=== PATIENT | female | born 1960 | race Caucasian/White ===

== ENCOUNTER → 2017-03-03 | Outpatient (CLI) | payer BC ==
[2017-03-03 18:28] LABS: ALT/SGPT 76 U/L (12-78); BLOOD UREA NITROGEN 25 mg/dl (7-18); BUN/CREATININE RATIO 40.5 (10-20); CARBON DIOXIDE 26 mmol/L (21-32); CHLORIDE 104 mmol/L (98-107); CREATININE 0.61 mg/dl (0.60-1.20); GLUCOSE 96 mg/dl (70-99); POTASSIUM 3.9 mmol/L (3.5-5.1); SODIUM 139 mmol/L (136-145)
[2017-03-03 18:30] LABS: CHOLESTEROL 132 mg/dl (0-200); CHOLESTEROL/HDL RATIO 3.1; HDL CHOLESTEROL 42 mg/dl; TRIGLYCERIDES 220 mg/dl (0-150); VERY LOW DENSITY LIPOPROT CALC 44 mg/dl
== END | disposition home or self-care (01) ==
LOC: C.LABMFLN 16:22
PROVIDERS: ATTEND Family Medicine
DX: I10 Essential (primary) hypertension (principal); F41.8 Other specified anxiety disorders; E78.00 Pure hypercholesterolemia, unspecified

== ENCOUNTER 2019-07-06 09:14 | Observation (INO) ==
--- NOTE | 2019-06-05 09:38 | PAT Medication Instructions ---
Medication Instructions Date of Service June 05, 2019 Home Medications Medication Instructions Recorded calcium carbonate 600 mg calcium 600 mg PO DAILY #90 tab 11/09/18 (1,500 mg) tablet gabapentin 300 mg capsule 300 mg PO TID #270 cap 03/08/19 amlodipine 5 mg tablet 5 mg PO DAILY #90 tab 05/30/19 calcium carbonate 600 mg calcium (1,500 mg) tablet 600 mg PO DAILY gabapentin 300 mg capsule 300 mg PO TID benazepril 20 mg PO QAM hydrocodone-acetaminophen 1 tab PO BID meloxicam 15 mg PO QAM sertraline 75 mg PO QAM amlodipine 5 mg tablet 5 mg PO DAILY ASK your surgeon for instructions meloxicam 15 mg PO QAM DO NOT take the morning of surgery calcium carbonate 600 mg calcium (1,500 mg) tablet 600 mg PO DAILY benazepril 20 mg PO QAM Take morning of surgery With a small sip of water, OTHERWISE NOTHING TO EAT OR DRINK AFTER MIDNIGHT: gabapentin 300 mg capsule 300 mg PO TID hydrocodone-acetaminophen 1 tab PO BID (if needed, may be taken up to four hours before surgery) sertraline 75 mg PO QAM amlodipine 5 mg tablet 5 mg PO DAILY Take evening before surgery gabapentin 300 mg capsule 300 mg PO TID hydrocodone-acetaminophen 1 tab PO BID Other Notes If you have any questions please call us at [phone] or [phone] or [phone] or [phone]
--- NOTE | 2019-06-05 10:56 | Anesthesiology Consultation ---
Date of Service June 05, 2019 Assessment & Plan (1) Encounter for pre-operative examination: Chart Review Chart Review: Acceptable Risk for Surgery (pending pre op testing) and Patient seen in Pre Admission Testing Teaching & Discussion Instructed NPO after midnight before surgery, except medications with 15 cc of water. Medication instructions provided according to the PAT guidelines. History Surgery Operation Date: 07/06/19 10:40 Proposed Procedures p Left Total Shoulder Arthroplasty - Maxim Hernández, Height/Weight Height: 5 ft 6 in Weight: 70.2 kg Allergies Allergy/AdvReac Type Severity Reaction Status Date / Time No Known Allergies Allergy Verified 05/29/19 08:31 Medications Home Medications Medication Instructions Recorded Confirmed Last Taken calcium carbonate 600 mg calcium 600 mg PO DAILY #90 tab 11/09/18 06/05/19 Unknown (1,500 mg) tablet gabapentin 300 mg capsule 300 mg PO TID #270 cap 03/08/19 06/05/19 Unknown benazepril 20 mg PO QAM 05/29/19 06/05/19 05/29/19 hydrocodone-acetaminophen 1 tab PO BID 05/29/19 06/05/19 Unknown meloxicam 15 mg PO QAM 05/29/19 06/05/19 05/29/19 sertraline 75 mg PO QAM 05/29/19 06/05/19 05/29/19 amlodipine 5 mg tablet 5 mg PO DAILY #90 tab 05/30/19 06/05/19 Unknown Past Medical History Medical History Benign essential hypertension (Chronic) Cervical radiculopathy (Chronic) HX PINCHED NERVE, HX EPIDURAL PROCEDURE PAIN MGMT FEW MONTHS AGO Depression with anxiety (Chronic) DJD (degenerative joint disease), lumbosacral (Chronic) Normal colonoscopy Opiate dependence (Suspected) Osteoarthritis Exercise / Class Metabolic Activity II 4-5 Yardwork/Stairs/Walk up hill (DENIES CP OR SOB WITH 1 FOS) Past Surgical History Surgical History History of colonoscopy History of ovarian cystectomy Past Anesthesia History No Hx of Anesthesia Complications and No Family Hx of Anesthesia Complications History of PONV No Hx of PONV and No Hx of Motion Sickness Social History Smoking Status: Former smoker tobacco type: cigarettes Smoking cigarettes per day: 30 Do You Dip or Chew Tobacco: No Smoking End Date: 1993 Hx Alcohol Use: No Hx Substance Use: No Review of Systems Pt denies any recent chest pain, shortness of breath, palpitations, cough, fever or URI. Physical Exam Vital Signs BP: 114/65 P: 53bpm SPO2: 98% RA T: 98.0 F R: 12 ENMT Mouth: + dentures and + edentulous Thyromental Distance: > or= 3.5 Finger Breadths (4) Mallampati Class: I Neck normal visual inspection; neck extension not limited Respiratory normal respiratory effort Auscultation: lungs clear to auscultation bilaterally Cardiovascular Rate/Rhythm: regular rhythm and + bradycardic Heart Sounds: no murmur Extremities: no edema Testing Electrocardiogram Date: 10/18/18 Findings: + SB @ (55) Moderate voltage criteria for LVH, may be normal.
--- NOTE | 2019-06-05 11:20 | XRay Report ---
XR chest Pre-admission PA/Lat HISTORY: 58 years-old Female pat preoperative exam. No acute chest complaints COMPARISON: None available TECHNIQUE: PA and lateral views of the chest FINDINGS: Cardiac mediastinal and hilar silhouettes are within normal limits. There is no pneumothorax, pleural effusion, focal airspace consolidation or overt pulmonary edema. Degenerative changes of the shoulde rs and spine. Minimal convex right curvature of the mid thorax. IMPRESSION: No acute process. ACT 112: Negative or not required by law. The above report was generated using voice recognition software. It may contain grammatical, syntax o r spelling errors. Electronically signed by: Drew Brown M.D. 06/05/2019 11:18 AM
[2019-06-05 11:52] LABS: Basophils # (auto) 0.02 K/uL (0-0.2); Basophils % (auto) 0.3 %; Eosinophils # (auto) 0.27 K/uL (0-0.5); Eosinophils % (auto) 3.7 %; Hematocrit (blood only) 40.3 % (37-47); Hemoglobin 13.7 g/dL (12.0-16.0); Immature Granulocytes # (auto) 0.03 K/uL (0.00-0.02); Immature Granulocytes % (auto) 0.4 %; Lymphocytes # (auto) 2.27 K/uL (1.2-3.4); Lymphocytes % (auto) 30.8 %; Mean Corpuscular Hemoglobin 30.1 pg (25-34); Mean Corpuscular Volume 88.6 fL (80-100); Mean Platelet Volume 9.8 fL (7.4-10.4); Monocytes # (auto) 0.34 K/uL (0.11-0.59); Monocytes % (auto) 4.6 %; Neutrophils # (auto) 4.44 K/uL (1.4-6.5); Neutrophils % (auto) 60.2 %; Platelet Count 224 K/uL (130-400); RDW Coefficient of Variation 12.5 % (11.5-14.5); RDW Standard Deviation 39.8 fL (36.4-46.3); Red Blood Count 4.55 M/uL (4.2-5.4); White Blood Count 7.37 K/uL (4.8-10.8)
[2019-06-05 11:58] LABS: BUN Creatinine Ratio 27.4 (10-20); Calcium 9.7 mg/dl (8.5-10.1); Creatinine Clr Calc Pharmacy 83.4 ml/min; Est GFR (Non-African American) 95.7; Potassium 4.7 mmol/L (3.5-5.1)
[2019-06-05 12:06] LABS: Partial Thromboplastin Ratio 0.9; Partial Thromboplastin Time 24.7 Seconds (21.0-31.0); Prothrombin Time 10.3 Seconds (9.0-12.0)
--- NOTE | 2019-07-05 15:56 | History & Physical Report ---
Date of Service July 05, 2019 Assessment & Plan (1) Osteoarthritis of glenohumeral joint: We will proceed with a left total shoulder arthroplasty. Postoperatively she will be placed in a sling and kept overnight in the hospital for postoperative medical management. She plans to go to outpatient physical therapy in [place] upon discharge. Present on Admission?: Yes History of Present Illness Chief Complaint: Primary osteoarthritis of the left shoulder Primary Care Provider: Braydon Gamino MD Nida is a pleasant 59-year-old female who is been dealing with chronic increasing left shoulder pain. MRI and clinical examination have been diagnostic for advanced osteoarthritis of the left shoulder. After failing conservative treatment, she has elected to proceed with a left total shoulder arthroplasty. Allergies Allergy/AdvReac Type Severity Reaction Status Date / Time No Known Allergies Allergy Verified 05/29/19 08:31 Home Medications Home Medications Medication Instructions Recorded Confirmed Type calcium carbonate 600 mg calcium 600 mg PO DAILY #90 tab 11/09/18 06/05/19 Rx (1,500 mg) tablet gabapentin 300 mg capsule 300 mg PO TID #270 cap 03/08/19 06/05/19 Rx benazepril 20 mg PO QAM 05/29/19 06/05/19 History meloxicam 15 mg PO QAM 05/29/19 06/05/19 History sertraline 75 mg PO QAM 05/29/19 06/05/19 History amlodipine 5 mg tablet 5 mg PO DAILY #90 tab 05/30/19 06/05/19 Rx hydrocodone 7.5 mg-acetaminophen 1 tab PO BID #60 tab 06/06/19 Rx 325 mg tablet Past Med/Surg History Medical History Benign essential hypertension (Chronic) Cervical radiculopathy (Chronic) HX PINCHED NERVE, HX EPIDURAL PROCEDURE PAIN MGMT FEW MONTHS AGO Depression with anxiety (Chronic) DJD (degenerative joint disease), lumbosacral (Chronic) Normal colonoscopy Opiate dependence (Suspected) Osteoarthritis Surgical History History of colonoscopy History of ovarian cystectomy Family History Mother Diabetes Hypertension Father Diabetes Sister Diabetes Brother Diabetes Grandmother (Maternal) Diabetes Social History Preferred Language: Niuean Communication Ability: Effective Beliefs That Will Affect Care: None Current Living Situation: Parent current occupational status: employed current occupation: [employer] maker [employer] Feels Safe at Home: Yes Smoking Status: Former smoker Tobacco Type: cigarettes ; Age Started Using Tobacco: 14 ; Age Quit Using Tobacco: 29 ; packs per day: 1.5 ; Cigarettes Per Day: 30 ; Do You Dip or Chew Tobacco: No ; Smoking End Date: 1993 ; Number of Years Since Quit: 30 ; Second Hand Exposure: No ; Hx Alcohol Use: No Hx Substance Use: No Review of Systems All systems reviewed & are unremarkable except as noted in HPI & below Physical Exam Constitutional: WD/WN, vitals as above Eyes: PERRL, conjunctivae normal, anicteric sclerae ENMT: external ear and nose normal, oropharynx normal Neck: trachea midline, no thyromegaly Respiratory: normal respiratory effort Cardiovascular: RRR, no murmur, no edema Gastrointestinal (Abdomen): normal bowel sounds, soft, nontender, no hepatosplenomegaly Musculoskeletal: Physical examination of the left shoulder reveals decreased range of motion and crepitis throughout. There is good strength with full can testing and external rotation. There is tenderness palpation along the anterior glenohumeral joint line. The right upper extremity is neurovascularly intact. Psychiatric: A+Ox3, euthymic affect Results & Data Diagnostic Findings Radiographs of the left shoulder show osteoarthritis of the glenohumeral joint. There is joint space narrowing, osteophyte formation, and [id number] articulation.
[~2019-07-06 09:14] MED LIST: ACETAMINOPHEN 500 MG TAB PO SCH; BUPIVACAINE 0.5 % 5 MG/1 ML PF 10ML VIAL ONE; CEFAZOLIN 1000MG 1,000 MG/7.5 ML SYR IV SCH; FAMOTIDINE 20 MG TAB PO SCH; GABAPENTIN 600 MG DOSE PO SCH; LIDOCAINE HCL 2% 2 ML VIAL/AMP(20MG/ML) INFIL ONE; LR 15ML/HR IV SCH; LR 60ML/HR IV SCH; MIDAZOLAM HCL 1 MG/ML 2ML VIAL ONE; PROPOFOL IV EMULSION 10 MG/ML 20 ML VIAL IV ONE; ROPIVACAINE 0.5% HCL/PF 150 MG, BUPIVACAINE 0.5% MPF 30 ML, EPINEPHrine 30MG/30ML (OR U... INFIL SCH; TRANEXAMIC ACID 1,000 MG **IV Intra-op IV SCH; TRANEXAMIC ACID 1,000 MG **IV Pre-op IV SCH; dexAMETHasone 4 MG TAB PO SCH; fentaNYL citrate 100 MCG/2 ML VIAL ONE
--- NOTE | 2019-07-06 09:48 | History & Physical Bridge Note ---
Date of Service July 06, 2019 History & Physical Bridge Note I have examined the patient, reviewed the History & Physical and in the interval since the performance of the History & Physical I have noted the following changes of clinical significance: no changes noted
[2019-07-06] MEDS ORDERED: ONDANSETRON INJ 2 MG/ML 2 ML VIAL IV PRN ×2 (10:21→13:57)
[2019-07-06] MEDS ORDERED: ePHEDrine sulfate 50 MG/ML AMP IV PRN (10:21)
[2019-07-06] MEDS ORDERED: ATROPINE SULFATE 0.1 MG/ML 10ML SYR IV PRN (10:21)
[2019-07-06] MEDS ORDERED: fentaNYL citrate 100 MCG/2 ML VIAL IV PRN (10:21)
[2019-07-06] MEDS ORDERED: ORTHO JOINT ANESTHETIC ONE (10:34)
[2019-07-06] MEDS ORDERED: fentaNYL citrate 100 MCG/2 ML VIAL ONE (11:31)
[2019-07-06] MEDS ORDERED: ePHEDrine sulfate 50 MG/ML SYR ONE (11:48)
[2019-07-06] MEDS ORDERED: DEXAMETHASONE SOD INJ 4 MG/ML VIAL ONE (11:48)
[2019-07-06] MEDS ORDERED: GLYCOPYRROLATE 0.2 MG/ML VIAL ONE (11:48)
[2019-07-06] MEDS ORDERED: ONDANSETRON INJ 2 MG/ML 2 ML VIAL ONE (11:48)
[2019-07-06] MEDS ORDERED: ROCURONIUM BROMIDE 10 MG/ML 5 ML VIAL ONE (11:48)
--- NOTE | 2019-07-06 12:22 | Operative Report ---
PG Post Operative Report Pre & Post Diagnosis Operation Date: 07/06/19 11:50 Pre-Op Diagnosis: LEFT SHOULDER DEGENERATIVE JOINT DISEASE with long head of biceps tendon disease Post-Op Diagnosis: LEFT SHOULDER DEGENERATIVE JOINT DISEASE with long head of biceps tendon disease I identified the patient and participated in the time-out.: Yes Procedure Operation Date: 07/06/19 11:50 Actual Procedures p Left Total Shoulder Arthroplasty with biceps tenodesis as a separate procedure (29 modifier )(Left) - Maxim Hernández DO Surgeon Maxim Hernández DO Independent Living Advisor Maxim Tariq PAC Estimated Blood Loss 200 Findings Consistent with Post-Op Diagnosis Specimens Left humeral head Complications none Disposition Disposition: Recovery Room Indications Nida is a pleasant 59-year-old female who presented my office with chronic increasing left shoulder pain. X-rays and clinical examination were diagnostic for primary osteoarthritis of the left shoulder. After failing conservative treatment, she elected proceed with a left total shoulder arthroplasty. Description of Procedure A CPT code modifier 59: The long head of the biceps tendon was enlarged and inflamed consistent with tendinopathy. A tenodesis was opted. This was a separate and distinct portion of the procedure. For these reasons, a CPT code modifier 59 will be added to this case. Implants used: I used a Biomet Comprehensive total shoulder arthroplasty system with a size 10 press fit mini humeral stem, a size 46 x 18 eccentric humeral head, and a medium size glenoid with a Regenerex peg. The glenoid was cemented in place with Palacos G cement. Nida arrived at [facility] for the above procedure. She was seen in the preoperative holding area and the operative extremity was identified and signed. She was given a preoperative antibiotic, TXA, and an interscalene nerve block. She was taken back to the operating room, laid on table in supine position, and put under general anesthesia. She was then put into the beachchair position. The shoulder was then prepped and draped in sterile fashion. A timeout was done and the patient and the operative extremity was properly identified. A deltopectoral approach was used. Dissection was taken down through the fascia and the deltoid was retracted laterally and the conjoined tendon was retracted medially. The anterior shoulder was exposed. The biceps groove was opened up and the biceps tendon was examined extensively. The biceps tendon demonstrated enlargement and inflammatory changes consistent with longstanding inflammation i n the context of osteoarthritis. The long head of the biceps tendon was then tenodesed to the upper border of the pectoralis major. This was a separate and distinct portion of the procedure. The subscapularis was then released off the lesser tuberosity with a centimeter of cuff tissue remaining. The inferior capsule was released and the humeral head was dislocated. The rotator cuff was inspected and intact. A canal finding reamer was sent down the center of the humeral canal. Sequential reaming up to a size 10 reamer was done. Offset reamer a proximal humeral resection guide was placed. The proximal humerus was resected at 135 of inclination and 30 of retroversion. Inferior osteophytes were then removed and the glenoid was exposed. Time was spent doing an appropriate labral rel ease. The glenoid measured to be a size medium. A 3.2 mm Steinmann pin was placed in the central hole of the glenoid vault pin guide. The glenoid was then reamed with a propeller reamer. The central post cutter was then used to prepare for the central boss. The cannulated peripheral peg drill guide was then placed and 3 peg holes were drilled. The final size medium glenoid was then cemented in place with Palacos G cement. Surrounding soft tissues were then injected with 100 cc of an orthopedic pain control cocktail. Once cement had dried the proximal humerus was once again exposed. Sequential broaching of the humerus up to a size 10 broach was done. Off that broach a size 46 x 18 eccentric humeral head was trialed. The shoulder was then reduced, brought through a full range of motion, and felt to be stable. The shoulder was then dislocated and the broach was removed. The final size 10 mini humeral stem implant was then impacted into place. A size 46 x 18 eccentric humeral head was then impacted onto the humeral stem. The shoulder was then reduced and once again brought through a full range of motion and felt to be stable. The subscapularis was then tenodesed back to the lesser tuberosity with transosseous FiberWire sutures and side to side sutures with the arm in 45 of external rotation. 2 sutures were placed in the lateral rotator interval. A dilute betadyne lavage was then done for 3 minutes. The joint was then irrigated with normal saline solution. Hemostasis was obtained. The interval was closed with 2-0 Vicryl suture. The skin was closed with 2-0 Vicryl and ashley. A soft dressing was placed and the arm was rested in a regular arm sling. She was then extubated and transferred to a hospital bed. She was taken to the postanesthesia care unit in stable condition. She tolerated the procedure well. I attest to the content of the Intraoperative Record and any orders documented therein. Any exceptions are noted below.
--- NOTE | 2019-07-06 13:06 | Anesthesiology Progress Note ---
Date of Service July 06, 2019 Anesthesia Post Procedure Vital Signs Vital Signs: Temp Pulse Pulse Resp BP Pulse Ox 07/06/19 12:55 58 L 10 L 166/82 H 100 07/06/19 12:45 36.0 C L 56 L 10 L 153/75 H 100 07/06/19 09:34 36.4 C L 53 L 18 183/85 H 97 Pain Intensity Left Shoulder: Pain Intensity: 3 Transfer of Care Handoff Completed per policy Notes Mental Status: alert / awake / arousable Patient Amnestic to Procedure: Yes Nausea / Vomiting: adequately controlled Pain: adequately controlled Airway Patency, RR, SpO2: stable & adequate BP & HR: stable & adequate Hydration State: stable & adequate Anesthetic Complications: no major complications apparent Notes: block working well in pacu
--- NOTE | 2019-07-06 13:15 | XRay Report ---
XR shoulder LT min 2V routine HISTORY: 59 years-old Female Post shoulder surgery left shoulder total joint arthroplasty COMPARISON: Chest radiograph 06/05/2019 TECHNIQUE: 2 views of the left shoulder FINDINGS: Left shoulder total joint arthroplasty demonstrates satisfactory alignment without acute fracture all retained foreign body. Lateral skin ashley are noted along with expected postsurgical soft tissue s welling and deep tissue air. IMPRESSION: Left shoulder total joint arthroplasty with expected postoperative findings. ACT 112: Negative or not required by law. The above report was generated using voice recognition software. It may contain grammatical, syntax o r spelling errors. Electronically signed by: Drew Brown M.D. 07/06/2019 1:13 PM
[2019-07-06] MEDS ORDERED: METOCLOPRAMIDE HCL INJ 5 MG/ML 2 ML VIAL IV PRN (13:57)
[2019-07-06] MEDS ORDERED: NALOXONE HCL 0.4 MG/1 ML VIAL/CARP IV PRN (13:57)
[2019-07-06] MEDS ORDERED: HYDROmorphone INJ 0.5 MG/0.5 ML SYR IV PRN (13:57)
[2019-07-06] MEDS ORDERED: bisacodyL 10 MG SUPP PR PRN (13:57)
[2019-07-06] MEDS ORDERED: MAGNESIUM HYDROXIDE SUSP 30 ML UDC PO PRN (13:57)
[2019-07-06] MEDS: SODIUM CHLORIDE 0.9% 1000ML 1,000 ML IV SCH (14:33)
[2019-07-06] MEDS: ACETAMINOPHEN 500 MG TAB PO SCH ×2 (14:47→20:36)
[2019-07-06] MEDS: KETOROLAC 30 MG/ML VIAL IV SCH ×2 (14:47→20:36)
[2019-07-06] MEDS: GABAPENTIN 300 MG CAP PO SCH ×2 (17:45→20:36)
[2019-07-06] MEDS: OXYCODONE HCL IR 5 MG TAB (IMMEDIATE RELEASE) PO PRN ×2 (17:47→23:52)
[2019-07-06] MEDS: CEFAZOLIN 2000MG 2,000 MG/15 ML SYR IV SCH (19:54)
[2019-07-06] MEDS: DOCUSATE SODIUM 100 MG CAP PO SCH (20:35)
[2019-07-06] MEDS ORDERED: SENNA 8.6 MG TAB PO SCH (21:00)
[2019-07-07] MEDS: SODIUM CHLORIDE 0.9% 1000ML 1,000 ML IV SCH (00:55)
[2019-07-07] MEDS: CEFAZOLIN 2000MG 2,000 MG/15 ML SYR IV SCH (04:27)
[2019-07-07] MEDS: KETOROLAC 30 MG/ML VIAL IV SCH ×2 (04:28→08:51)
[2019-07-07] MEDS: OXYCODONE HCL IR 5 MG TAB (IMMEDIATE RELEASE) PO PRN ×2 (04:35→09:03)
[2019-07-07] MEDS: ACETAMINOPHEN 500 MG TAB PO SCH (05:46)
[2019-07-07 05:55] LABS: Hemoglobin 11.4 g/dL (12.0-16.0); Immature Granulocytes # (auto) 0.03 K/uL (0.00-0.02); Immature Granulocytes % (auto) 0.2 %; Lymphocytes # (auto) 0.83 K/uL (1.2-3.4); Lymphocytes % (auto) 4.9 %; Mean Corpuscular Hemoglobin 29.8 pg (25-34); Mean Corpuscular Hgb Conc 34.5 g/dL (32-36); Mean Corpuscular Volume 86.2 fL (80-100); Mean Platelet Volume 9.8 fL (7.4-10.4); Monocytes # (auto) 0.34 K/uL (0.11-0.59); Neutrophils # (auto) 15.91 K/uL (1.4-6.5); Neutrophils % (auto) 92.9 %; Platelet Count 189 K/uL (130-400); RDW Coefficient of Variation 12.1 % (11.5-14.5); Red Blood Count 3.83 M/uL (4.2-5.4); White Blood Count 17.11 K/uL (4.8-10.8)
[2019-07-07 06:23] LABS: BUN Creatinine Ratio 31.1 (10-20); Calcium 9.1 mg/dl (8.5-10.1); Creatinine Clr Calc Pharmacy 67.7 ml/min; Est GFR (African American) 86.3; Est GFR (Non-African American) 74.5; Potassium 4.2 mmol/L (3.5-5.1)
[2019-07-07] MEDS ORDERED: dexAMETHasone 4 MG TAB PO SCH (08:00)
[2019-07-07] MEDS: DOCUSATE SODIUM 100 MG CAP PO SCH (08:48)
[2019-07-07] MEDS: GABAPENTIN 300 MG CAP PO SCH (08:49)
--- NOTE | 2019-07-07 08:51 | Orthopedic Progress Note ---
Date of Service July 07, 2019 Assessment & Plan (1) History of left shoulder replacement: Overall she is doing very well. She is not having much pain in the left shoulder. She will be seen by physical therapy this morning for ambulation and range of motion exercises. She can be discharged home later today. She will follow-up with orthopedics in 2 weeks. Present on Admission?: Yes Subjective Nida was seen and examined at bedside this morning. Overall she is doing very well. She is not having any pain in the left shoulder. She was able to get some sleep last night. She has no complaints. Physical Exam Musculoskeletal: On physical examination of the left shoulder, the dressing is clean and dry. She is wearing her sling as instructed. Her radial, median, and ulnar nerves are checked and intact at her wrist. Her axillary nerve was not checked yet. Results & Data ([facility]) Vital Signs (Past 12 Hours) Vital Signs Temp Pulse Resp BP Pulse Ox 07/07/19 07:20 36.7 C 47 L 16 137/71 93 07/07/19 04:00 36.4 C L 59 L 16 145/73 H 92 07/06/19 23:05 36.5 C 51 L 16 135/72 92 Laboratory Results H & H 06/05/19 07/07/19 Range/Units 10:45 05:22 Hgb 13.7 11.4 L (12.0-16.0) g/dL Hct 40.3 33.0 L (37-47) % Coagulation 06/05/19 Range/Units 10:45 INR 1.0 (0.9-1.1) Diagnostic Findings Postoperative x-rays of the left shoulder show the prosthesis to be in anatomic alignment without any evidence of fracture, dislocation, or loosening. PG Care Time/CCT Total # of Minutes Spent Total Time Spent with Patient: Total time spent is greater than 50% in coordination of care (as documented) at patient's floor/unit and/or counseling patient: Coding Level of Care Code None Diagnoses History of left shoulder replacement Z96.612
[2019-07-07] MEDS ORDERED: AMLODIPINE BESYLATE 5 MG TAB PO SCH (09:00)
[2019-07-07] MEDS ORDERED: MULTIVITAMIN TAB PO SCH (09:00)
[2019-07-07] MEDS ORDERED: ENALAPRIL MALEATE 10 MG TAB PO SCH (09:00)
[2019-07-07] MEDS ORDERED: SERTRALINE HCL 50 MG TABLET PO SCH (09:00)
--- NOTE | 2019-07-08 07:56 | Discharge Summary ---
Date of Service July 08, 2019 Admission HPI Per Admitting Provider Nida is a pleasant 59-year-old female who is been dealing with chronic increasing left shoulder pain. MRI and clinical examination have been diagnostic for advanced osteoarthritis of the left shoulder. After failing conservative treatment, she has elected to proceed with a left total shoulder arthroplasty. Principal Diagnosis Left total shoulder arthroplasty Discharge Data Allergies Allergy/AdvReac Type Severity Reaction Status Date / Time No Known Allergies Allergy Verified 07/06/19 09:32 Consultations 07/06/19 13:57 Consult Case Management - Discharge Planning Routine Procedures Performed Operation Date: 07/06/19 11:50 Actual Procedures p Left Total Shoulder Arthroplasty(Left) - Maxim Hernández DO Ordered Studies 07/06/19 05:00 US - OR guided needle placemen Routine Hospital Course (1) History of left shoulder replacement: On July 06, 2019 Nida arrived at [facility] and underwent a left total shoulder arthroplasty without complication. She had a general anesthetic and a left interscalene nerve block. Postoperatively she was placed in arm sling and discharged to general orthopedic floors. Her hospital course was uneventful. On postop day #1 her H&H was stable and her pain was well controlled. She was able to participate well with physical therapy doing ambulation and range of motion exercises. She was then discharged home. She will follow-up with orthopedics in 2 weeks. Total Time Total Time Spent Total Time Spent (In Minutes): 20 Discharge Plan Discharge Items Patient Disposition: Home - Home Health Services Reason For Visit: LEFT SHOULDER DEGENERATIVE JOINT DISEASE Discharge Diagnosis: Left total shoulder arthroplasty Activity: As commented below Non-emergency contact: Surgeon Call non-emergency contact if: your wound has increased redness and your wound has increased drainage Follow-up/Referrals: Braydon Gamino MD [Primary Care Provider] - Diet: Regular Addtl Attending Provider Instructions: Activity and Therapy Recommendations: * If you are using [facility] then therapy will be provided at your home until they feel you have accomplished all of your goals. * If you are using [facility] then Physical Therapy will be provided until they feel you are ready to start Outpatient Physical Therapy. * If you are not using home therapy then Outpatient Physical Therapy should start about 3-5 days from your day of surgery. Therapy will last about 8-12 weeks * Wear your sling for 3 weeks, unless otherwise instructed. You may remove your sling to shower and to dress, but otherwise, you should be in your sling at all times, including while sleeping * The shoulder replacement is very stable and you can use your hand while in the sling * You were shown a series of exercises in the hospital. Do these exercises daily including the exercises you were shown in physical therapy. Medications: * Narcotic You will likely be sent home from the hospital with a prescription for the narcotic pain medication that worked best throughout your stay. * Other medications may be prescribed for specific circumstances. If you have any questions, please call the office at . * Resume previous home medications unless otherwise instructed Dressing Care: Leave the plastic dressing in place for 5 days. After 5 days you may remove the plastic dressing. If the incision is not draining then you may leave the ashley open to air. If there is a little bit of drainage or if the ashley are getting stuck on your clothing then cover the incision with a dry dressing. The ashley will be removed at your 2 week follow-up appointment. Showering: You may shower with the plastic dressing in place. Let the shower spray hit the other shoulder. You can pat the plastic dry. If the dressing becomes wet underneath the plastic then simply remove the dressing. Keep the incision dry until you are 5 days out from the day of surgery. At that time you can shower with the ashley exposed. Let the soapy shower water run over the ashley and pat them dry. Do not scrub or soak the incision. Things To Watch For: * Drainage from the incision site that occurs more than one week after your surgery. * Increased redness at the incision site. * Fever above 102 degrees Fahrenheit. * Unusual chest pain or shortness of breath. * Call [facility] at with any of the above problems Follow-Up Visit: Follow-up with Dr. Hernández 2-3 weeks after your day of surgery. An appointment was probably scheduled when you signed-up for surgery in the office. If you have any questions call Office Instructions: More detailed instructions as well as Frequently Asked Questions were provided in a folder by our office when you signed-up for surgery. Please review these instructions when you get home. If you have any further questions or concerns, please feel free to call the office at [phone] Pending Studies at Discharge: No Stand-Alone Forms: [facility], Opioid Pain Management, Smoking Cessation Medications and DC Order Prescriptions: New hydrocodone-acetaminophen 7.5-325 mg tablet 1 tab PO Q4H Qty: 30 RF: 0 Continued gabapentin 300 mg capsule 300 mg PO TID Qty: 270 RF: 3 calcium carbonate 600 mg calcium (1,500 mg) tablet 600 mg PO DAILY Qty: 90 RF: 3 amlodipine 5 mg tablet 5 mg PO DAILY Qty: 90 RF: 3 meloxicam 15 mg tablet 15 mg PO QAM RF: 0 benazepril 20 mg tablet 20 mg PO QAM RF: 0 sertraline 50 mg tablet 75 mg PO QAM RF: 0 Discharge Orders: Discharge Order (Routine); Ordered 07/07/19 Ordered By: Maxim Kaur/Other Patient Handouts: Surgery Prevent DVT After Admission Data Admit Date/Time: 07/06/19 12:47 Attending Provider: Maxim Hernández Admit Provider: Maxim Hernández Primary Care Provider: Braydon Gamino Other Interventions: Discharge Summary Assessment (RN) Last Done: 07/07/19 10:05 DC Date/Time DO NOT enter until pt leaves facility: 07/07/19 11:20 Coding Level of Care Code D/C Day Management <30 mins Diagnoses History of left shoulder replacement Z96.612
== END 2019-07-07 11:20 | disposition home health service (06) ==
LOC: 3E 09:14 → ASU 09:14

== ENCOUNTER 2022-09-06 09:41 | Observation (INO) ==
--- NOTE | 2022-08-04 10:34 | PAT Medication Instructions ---
Medication Instructions Date of Service August 04, 2022 Home Medications Medication Instructions Recorded gabapentin 300 mg capsule See Rx Instructions .Route BID 04/19/22 #360 caps metformin 500 mg tablet 500 mg PO QAM #90 tabs 04/19/22 tramadol 50 mg tablet 100 mg PO Q12H PRN pain #28 tabs 07/09/22 gabapentin 300 mg capsule See Rx Instructions .Route BID metformin 500 mg tablet 500 mg PO QAM tramadol 50 mg tablet 100 mg PO Q12H PRN pain acetaminophen 650 mg tablet,extended release (Tylenol Arthritis Pain) 1,300 mg PO Q12H PRN Pain amlodipine 5 mg-benazepril 20 mg capsule 1 cap PO QAM calcium carbonate 600 mg calcium (1,500 mg) tablet 600 mg PO QAM meloxicam 15 mg tablet 15 mg PO QAM sertraline 50 mg tablet 50 mg PO QAM ASK your surgeon for instructions meloxicam 15 mg tablet 15 mg PO QAM DO NOT take the morning of surgery metformin 500 mg tablet 500 mg PO QAM calcium carbonate 600 mg calcium (1,500 mg) tablet 600 mg PO QAM Take morning of surgery With a small sip of water, OTHERWISE NOTHING TO EAT OR DRINK AFTER MIDNIGHT: gabapentin 300 mg capsule See Rx Instructions .Route BID tramadol 50 mg tablet 100 mg PO Q12H PRN pain (if needed) acetaminophen 650 mg tablet,extended release (Tylenol Arthritis Pain) 1,300 mg PO Q12H PRN Pain (if needed) amlodipine 5 mg-benazepril 20 mg capsule 1 cap PO QAM sertraline 50 mg tablet 50 mg PO QAM Take evening before surgery gabapentin 300 mg capsule See Rx Instructions .Route BID tramadol 50 mg tablet 100 mg PO Q12H PRN pain (if needed) acetaminophen 650 mg tablet,extended release (Tylenol Arthritis Pain) 1,300 mg PO Q12H PRN Pain (if needed) Other Notes If you have any questions please call us at [phone] or [phone] or [phone] or [phone]
--- NOTE | 2022-08-10 13:05 | Anesthesiology Consultation ---
Date of Service August 10, 2022 Assessment & Plan (1) Encounter for pre-operative examination: - COVID screening: Per assessment on 08/10: No known COVID-19 positive contacts or current COVID-19 related symptoms. Travel screen negative. Patient vaccinated. At surgeon discretion if preop Covid testing being done. - Check BSG AM DOS - Outpatient joint assessment: Pt currently scheduled for inpatient pathway. If surgeon requests review for outpatient joint pathway, patient is an acceptable candidate for outpatient joint program from anesthesia standpoint pending surgeon's office assessment that patient is motivated, has good support and completes Same Day Joint Program preop requirements. Chart Review Chart Review: Acceptable Risk for Surgery and Patient seen in Pre Admission Testing Teaching & Discussion Pre-Anesthesia Teaching/Discussion Notes: Instructed NPO after midnight before surgery,except medications with 15 cc of water. Medication instructions provided according to the PAT guidelines. History Surgery Operation Date: 09/06/22 10:40 Proposed Procedures p Right Total Shoulder Arthroplasty Verses - Maxim Hernández DO s Right Reverse Total Shoulder Arthroplasty - Maxim Hernández DO Height/Weight Height: 5 ft 4 in Weight: 67.2 kg Allergies Allergy/AdvReac Type Severity Reaction Status Date / Time NSAIDS (Non-Steroidal AdvReac Severe Increased Verified 08/10/22 13:12 Anti-Inflamma BP Medications Home Medications Medication Instructions Recorded Confirmed Last Taken gabapentin 300 mg capsule See Rx Instructions .Route BID 04/19/22 08/10/22 Unknown #360 caps metformin 500 mg tablet 500 mg PO QAM #90 tabs 04/19/22 08/10/22 Unknown tramadol 50 mg tablet 100 mg PO Q12H PRN pain #28 tabs 07/09/22 08/10/22 Unknown acetaminophen 650 mg 1,300 mg PO Q12H PRN Pain 08/04/22 08/10/22 Unknown tablet,extended release (Tylenol Arthritis Pain) amlodipine 5 mg-benazepril 20 mg 1 cap PO QAM 08/04/22 08/10/22 Unknown capsule calcium carbonate 600 mg calcium 600 mg PO QAM 08/04/22 08/10/22 Unknown (1,500 mg) tablet meloxicam 15 mg tablet 15 mg PO QAM 08/04/22 08/10/22 Unknown sertraline 50 mg tablet 50 mg PO QAM 08/04/22 08/10/22 Unknown Past Medical History Medical History Arthritis Hands Benign essential hypertension Borderline diabetes Bulging disc Cervical radiculopathy Hx pinched nerve, hx epidural procedure with pain management over a years ago > Full ROM per patient Depression with anxiety DJD (degenerative joint disease), lumbosacral History of COVID-19 02/2020 Osteoarthritis Sciatica Exercise / Class Metabolic Activity II 4-5 Yardwork/Stairs/Walk up hill (one FS (no CP, no SOB)) Past Family History Family History Mother Diabetes Hypertension Father Diabetes Sister Diabetes Brother Diabetes Grandmother (Maternal) Diabetes Past Surgical History Surgical History History of carpal tunnel release left History of colonoscopy History of left shoulder replacement Left total shoulder arthroplasty (07/06/19): LMA#3, atraumatic + PNB at [facility]. No issues noted per post-op anesthesia progress note. History of ovarian cystectomy Past Anesthesia History No Hx of Anesthesia Complications and No Family Hx of Anesthesia Complications History of PONV No Hx of PONV and No Hx of Motion Sickness Social History Smoking Status: Former smoker tobacco type: cigarettes Do You Dip or Chew Tobacco: No Smoking End Date: Quit at age 29 (hx 30 cigs/day) Hx Alcohol Use: No Hx Substance Use: No substance use type: does not use and prescription drug Review of Systems Patient denies chest pain, shortness of breath, dyspnea on exertion, fever, chills, cough, wheezing, palpitations. Physical Exam Vital Signs VITALS BP 130/78 P 80 TEMP 98.2 SP02 96%RA RESP 18 PHYSICAL Full cervical extension range of motion. Full TMJ range of motion. TMD 4 finger breaths Mallampati Score 1 Dentition: edentulous Lungs: clear throughout to auscultation Cardiac: regular rate and rhythm, no murmurs noted Spine: normal Carotid arteries: negative bruit Extremities: no edema Lab Results Anesthesia Preop Results Results Anesthesia Widget: WBC 6.53 K/ul (4.8-10.8) 08/10/22 Hgb 12.3 g/dl (12.0-16.0) 08/10/22 Hct 35.4 % (37.0-47.0) L 08/10/22 Plt 231 K/uL (130-400) 08/10/22 Na 138 mmol/L (136-145) 08/10/22 K 3.6 mmol/L (3.5-5.1) 08/10/22 Cl 103 mmol/L (98-107) 08/10/22 CO2 28 mmol/L (21-32) 08/10/22 BUN 15 mg/dl (6-23) 08/10/22 Creat 0.62 mg/dl (0.6-1.2) 08/10/22 Glucose Level 139 mg/dl (70-99(Fasting)) H 08/10/22 PT 10.7 Seconds (9.0-12.0) 08/10/22 PTT 25.7 Seconds (21.0-31.0) 08/10/22 INR 1.0 (0.9-1.1) 08/10/22 HA1c 6.2 % (4.5-5.6) H 08/10/22 Blood Type A Negative 08/10/22 Antibody Screen NEGATIVE 08/10/22 Testing Electrocardiogram Date: 08/10/22 NSR with sinus arrhythmia at 72bpm. Chest X-Ray Date: 08/10/22 FINDINGS: Cardiomediastinal and hilar silhouettes are within normal limits. No pneumothorax, pleural effusion, airspace consolidation or pulmonary edema. Degenerative changes of the spine and right shoulder. Left shoulder arthroplasty. Chronic left-sided rib fractures. IMPRESSION: No acute process. COVID-19 Risk Screen Screening Information COVID-19 Screen Date: 08/10/22 Exposure 21 Days Family/Household +COVID Last 21 Days: No Exposure 10 Days Any COVID Exposure Last 10 Days: No Symptoms Last 10 Days Experienced COVID Sx Last 10 Days: No + COVID 0-90 Days COVID + in Last 0-90 Days: No
[~2022-09-06 09:41] MED LIST changes: +ALLERGY Noted to ORDERED Medication SCH; -BUPIVACAINE 0.5 % 5 MG/1 ML PF 10ML VIAL ONE; -CEFAZOLIN 1000MG 1,000 MG/7.5 ML SYR IV SCH; +GABAPENTIN 300 MG CAP PO SCH; -GABAPENTIN 600 MG DOSE PO SCH; -LIDOCAINE HCL 2% 2 ML VIAL/AMP(20MG/ML) INFIL ONE; -MIDAZOLAM HCL 1 MG/ML 2ML VIAL ONE; +ORTHO JOINT MIX INFIL SCH; -PROPOFOL IV EMULSION 10 MG/ML 20 ML VIAL IV ONE; -ROPIVACAINE 0.5% HCL/PF 150 MG, BUPIVACAINE 0.5% MPF 30 ML, EPINEPHrine 30MG/30ML (OR U... INFIL SCH; +ceFAZolin 2000MG 2,000 MG/15 ML SYR IV SCH; -fentaNYL citrate 100 MCG/2 ML VIAL ONE
--- NOTE | 2022-09-06 10:23 | History & Physical Bridge Note ---
Date of Service September 06, 2022 History & Physical Bridge Note I have examined the patient, reviewed the History & Physical and in the interval since the performance of the History & Physical I have noted the following changes of clinical significance: no changes noted
[2022-09-06] MEDS ORDERED: Nursing to Pharmacy Communication SCH (10:45)
[2022-09-06] MEDS ORDERED: ROPIVACAINE 0.5% 5 MG/ML 30 ML VIAL ONE (12:07)
[2022-09-06] MEDS ORDERED: MIDAZOLAM HCL 1 MG/ML 2ML VIAL ONE (12:10)
[2022-09-06] MEDS ORDERED: PROPOFOL IV EMULSION 10 MG/ML 20 ML VIAL IV ONE (12:11)
[2022-09-06] MEDS ORDERED: ROCURONIUM BROMIDE 10 MG/ML 5 ML VIAL IV ONE (12:11)
[2022-09-06] MEDS ORDERED: fentaNYL citrate PF 100 MCG/2 ML VIAL ONE ×2 (12:11→14:53)
[2022-09-06] MEDS ORDERED: ONDANSETRON INJ 2 MG/ML 2 ML VIAL ONE (12:11)
[2022-09-06] MEDS ORDERED: LIDOCAINE 2% MPF LOCAL 5 ML VIAL ONE (12:11)
[2022-09-06] MEDS ORDERED: ePHEDrine sulfate 50 MG/ML AMP ONE (13:29)
[2022-09-06] MEDS ORDERED: SUGAMMADEX SODIUM 200 MG/2 ML VIAL IV ONE (14:14)
--- NOTE | 2022-09-06 14:15 | Operative Report ---
PG Post Operative Report Pre & Post Diagnosis Operation Date: 09/06/22 12:30 Pre-Op Diagnosis: Right Shoulder Osteoarthritis with tendinopathy long head of the biceps tendon Post-Op Diagnosis: Right Shoulder Osteoarthritis with tendinopathy long head of the biceps tendon I identified the patient and participated in the time-out.: Yes Procedure Operation Date: 09/06/22 12:30 Actual Procedures p Right Total Shoulder Arthroplasty(Right) with tendinopathy long head of the biceps tendon- Maxim Hernández DO Surgeon Maxim Hernández DO Air Traffic Coordinator Maxim Tariq PA-C Estimated Blood Loss 100 Findings Consistent with Post-Op Diagnosis Specimens Right humeral head Description of Procedure A CPT code modifier 59: The long head of the biceps tendon was enlarged and inflamed consistent with tendinopathy. A tenodesis was opted. This was a separate and distinct portion of the procedure. For these reasons, a CPT code modifier 59 will be added to this case. Implants used: I used a [employer] Comprehensive total shoulder arthroplasty system with a size 10 press fit micro humeral stem, a size 46 x 18 eccentric humeral head, and a size 3 glenoid with a trabecular metal peg. The glenoid was cemented in place with Palacos G cement. Nida arrived at [facility] for the above procedure. She was seen in the preoperative holding area and the operative extremity was identified and signed. She was given a preoperative antibiotic, TXA, and an interscalene nerve block. She was taken back to the operating room, laid on table in supine position, and put under general anesthesia. She was then put into the beachchair position. The shoulder was then prepped and draped in sterile fashion. A timeout was done and the patient and the operative extremity was properly identified. A deltopectoral approach was used. Dissection was taken down through the fascia and the deltoid was retracted laterally and the conjoined tendon was retracted medially. The anterior shoulder was exposed. The biceps groove was opened up and the biceps tendon was examined extensively. The biceps tendon demonstrated enlargement and inflammatory changes consistent with longstanding inflammation in the context of osteoarthritis. The long head of the biceps tendon was then tenodesed to the upper border of the pectoralis major. This was a separate and distinct portion of the procedure. The subscapularis was then released off the lesser tuberosity with a centimeter of cuff tissue remaining. The inferior capsule was released and the humeral head was dislocated. The rotator cuff was inspected and intact. A canal finding reamer was sent down the center of the humeral canal. Sequential reaming up to a size 10 reamer was done. Offset reamer a proximal humeral resection guide was placed. The proximal humerus was resected at 135 of inclination and 30 of retroversion. Inferior osteophytes were then removed and the glenoid was exposed. Time was spent doing an appropriate labral release. The glenoid measured to be a size 3. A 3.2 mm Steinmann pin was placed in the central hole of the glenoid vault pin guide. The glenoid was then reamed with a propeller reamer. The central post cutter was then used to prepare for the central boss. The cannulated peripheral peg drill guide was then placed and 3 peg holes were drilled. The final size 3 glenoid was then cemented in place with Palacos G cement. Surrounding soft tissues were then injected with 100 cc of an orthopedic pain control cocktail. Once cement had dried the proximal humerus was once again exposed. Sequential broaching of the humerus up to a size 10 broach was done. Off that broach a size 46 x 18 eccentric humeral head was trialed. The shoulder was then reduced, brought through a full range of motion, and felt to be stable. The shoulder was then dislocated and the broach was removed. The final size 10 micro humeral stem implant was then impacted into place. A size 46 x 18 eccentric humeral head was then impacted onto the humeral stem. The shoulder was then reduced and once again brought through a full range of motion and felt to be stable. The subscapularis was then tenodesed back to the lesser tuberosity with transosseous FiberWire sutures and side to side sutures with the arm in 45 of external rotation. 2 sutures were placed in the lateral rotator interval. A dilute betadyne lavage was then done for 3 minutes. The joint was then irrigated with normal saline solution. Hemostasis was obtained. The interval was closed with 2-0 Vicryl suture. The skin was closed with 2-0 Vicryl and ashley. A Silverlon dressing was placed and the arm was rested in a regular arm sling. Johnnie burton was then extubated and transferred to a hospital bed. She was taken to the postanesthesia care unit in stable condition. She tolerated the procedure well. Maxim Tariq PA-C, was present for the entire procedure. He was critical for patient positioning, prepping, draping, retraction exposure, wound closure and application of sterile dressing. I attest to the content of the Intraoperative Record and any orders documented therein. Any exceptions are noted below.
[2022-09-06] MEDS ORDERED: ePHEDrine sulfate 50 MG/ML AMP IV PRN (14:45)
[2022-09-06] MEDS ORDERED: ONDANSETRON INJ 2 MG/ML 2 ML VIAL IV PRN (14:45)
[2022-09-06] MEDS ORDERED: ATROPINE SULFATE 0.1 MG/ML 10ML SYR IV PRN (14:45)
[2022-09-06] MEDS ORDERED: LABETALOL HCL IV 5 MG/ML 20ML IV PRN (14:45)
[2022-09-06] MEDS ORDERED: ALBUTEROL 0.083% NEBU SOLN 3 ML VIAL INH PRN (14:45)
[2022-09-06] MEDS ORDERED: ACETAMINOPHEN 1,000 MG/100 ML VIAL IV STA (14:45)
[2022-09-06] MEDS: fentaNYL citrate PF 100 MCG/2 ML VIAL IV PRN ×3 (14:55→15:10)
--- NOTE | 2022-09-06 15:28 | Anesthesiology Progress Note ---
Date of Service September 06, 2022 Anesthesia Post Procedure Vital Signs Vital Signs: Temp Pulse Resp BP Pulse Ox O2 Del Method O2 Flow Rate 09/06/22 15:20 36.3 C L 75 13 111/74 86 L Room Air 09/06/22 15:10 36.3 C L 72 21 111/74 96 Room Air 09/06/22 14:50 74 16 131/66 100 Oxymask 5 09/06/22 15:00 68 17 122/67 99 Oxymask 3 09/06/22 14:40 76 16 135/78 100 Oxymask 5 09/06/22 14:33 36.2 C L 80 18 139/69 100 Oxymask 7 09/06/22 10:17 36.5 C 58 L 18 97 Room Air Pain Intensity Right Shoulder: Pain Intensity: 5 Transfer of Care Handoff Completed per policy Notes Mental Status: alert / awake / arousable Patient Amnestic to Procedure: Yes Nausea / Vomiting: adequately controlled Pain: adequately controlled Airway Patency, RR, SpO2: stable & adequate BP & HR: stable & adequate Hydration State: stable & adequate Anesthetic Complications: no major complications apparent
--- NOTE | 2022-09-06 16:03 | XRay Report ---
XR shoulder RT min 2V routine CLINICAL HISTORY: Post shoulder surgery COMPARISON: Right shoulder radiographs June 02, 2022. FINDINGS: Alignment of the right shoulder arthroplasty is anatomic. There is no periprosthetic fract ure. No unexpected radiopaque foreign bodies are present. There are skin ashley. There is possible g aseous distention of the stomach. Lung volumes appear diminished. Right basilar opacity favors atelec tasis. IMPRESSION: Status post right shoulder arthroplasty. No periprosthetic fracture. No unexpected radiop aque foreign bodies. ACT 112: Negative or not required by law. Electronically signed by: Marito Cheema M.D. 09/06/2022 4:02 PM
[2022-09-06] MEDS: KETOROLAC 30 MG/ML VIAL IV SCH ×2 (17:01→23:10)
[2022-09-06] MEDS: oxyCODONE/ACETAMINOPHEN 5mg/325mg TAB PO PRN (20:15)
[2022-09-06] MEDS ORDERED: GABAPENTIN 600 MG TAB PO SCH (21:00)
[2022-09-07] MEDS: oxyCODONE/ACETAMINOPHEN 5mg/325mg TAB PO PRN (02:42)
[2022-09-07] MEDS: KETOROLAC 30 MG/ML VIAL IV SCH ×2 (05:25→10:51)
--- NOTE | 2022-09-07 06:41 | Orthopedic Progress Note ---
Date of Service September 07, 2022 Assessment & Plan (1) Status post replacement of right shoulder joint: Overall she is doing fairly well. She is not having much pain in the right shoulder. She will be seen by physical therapy today for ambulation and range of motion exercises. As long as she can be weaned off the oxygen until her saturations are above 92% on room air, she can be discharged to home. She will follow-up with orthopedics in 2 weeks. Filipe Alva was seen and examined at bedside this morning. Overall she is doing very well. She is not having much pain in the right shoulder. She was little hypoxic yesterday and had to be placed on nasal cannula oxygen. Otherwise she has no complaints.. Review of Systems All systems reviewed & are unremarkable except as noted in HPI & below. Physical Exam On physical examination of the right shoulder, the dressing is clean and dry. She is wearing her sling as instructed. She is neurovascular intact.. Results & Data Results & Data Laboratory Results . Diagnostic Findings Postoperative x-rays of the right shoulder show the prosthesis to be in anatomic alignment without any evidence of fracture, screws, or loosening. PG Care Time/CCT Total # of Minutes Spent Total Time Spent with Patient: Total time spent is greater than 50% in coordination of care (as documented) at patient's floor/unit and/or counseling patient: Coding Level of Care Code 78394 Post Operative Follow-Up Diagnoses Status post replacement of right shoulder joint Z96.611
[2022-09-07] MEDS ORDERED: metFORMIN HCL 500 MG TAB PO SCH (09:00)
[2022-09-07] MEDS ORDERED: BENAZEPRIL HCL 10 MG TAB PO SCH (09:00)
[2022-09-07] MEDS ORDERED: SERTRALINE HCL 50 MG TABLET PO SCH (09:00)
[2022-09-07] MEDS ORDERED: GABAPENTIN 300 MG CAP PO SCH (09:00)
[2022-09-07] MEDS ORDERED: ENALAPRIL MALEATE 10 MG TAB PO SCH (09:00)
[2022-09-07] MEDS ORDERED: amLODIPine BESYLATE 5 MG TAB PO SCH (09:00)
== END 2022-09-07 11:10 | disposition home health service (06) ==
LOC: ASU 09:41 → 3E 09:41
DX: M19.011 Primary osteoarthritis, right shoulder; Z87.891 Personal history of nicotine dependence; Z79.84 Long term (current) use of oral hypoglycemic drugs; Z79.899 Other long term (current) drug therapy; Z86.16 Personal history of COVID-19; Z88.6 Allergy status to analgesic agent